=== PATIENT | male | born 1955 | race Caucasian/White ===

== ENCOUNTER 2019-09-04 11:02 | Emergency (ER) | payer MEDICARE, SELFPAY ==
[2019-09-04 11:24] VITALS: BMI 20.9
[2019-09-04 11:27] VITALS: BP 150/78; PULSE 78; RESP 18; TEMP 36.9; O2SAT 96
--- NOTE | 2019-09-04 11:29 | ED_ITS ---
Entered by Day Fajardo, acting as scribe for Pop Drake DO HPI - Eye Problem General: Chief complaint: Eye Problems Stated complaint: LEFT EYE PAIN Time Seen by Provider: 09/04/19 11:28 Source: patient Mode of arrival: ambulatory Limitations: no limitations History of Present Illness: HPI Narrative: 63 yo male presents with redness and pain to L eye. pt states this started 1-2 days ago. pt states he was grinding metal and he thinks a piece might be in his eye because the next day he woke up with redness and discharge. pt denies any other symptoms at this time. Patient had been grinding some metal and this started. chief complaint: eye pain (L eye), eye redness and vision change Onset (ago): day(s) (1-2 days ago) Onset description: sudden Duration: constant and progressively worsening Location: left eye Eye Symptoms: redness and pain Place: home Mechanism: none Severity: moderate Associated symptoms: Reports no associated symptoms; Denies fever(s), nausea or vomiting Treatments Prior to Arrival: none Review of Systems General: Reports: 10 or more systems reviewed and unremarkable except in HPI and below Const: Denies: fever, chills, body aches, change in appetite, fatigue or malaise Eyes: Reports: eye discomfort, eye discharge, eye redness and other ENMT: Denies: throat pain, ear pain, nasal discharge or nasal congestion Card: Denies: chest pain, edema, shortness of breath on exertion or shortness of breath when lying down Resp: Denies: shortness of breath, productive cough or non-productive cough GI: Denies: abdominal pain, nausea, vomiting, vomiting blood, coffee grounds in vomit, diarrhea, constipation, bloating, blood in stool or black tarry stool : Denies: flank pain, painful urination, urinary frequency or urinary urgency Skin/Breast: Denies: rash or itching PFSH ED PFSH: Social History Smoking and tobacco status: current every day smoker Physical Exam Const: COMMON NORMALS: no apparent distress GENERAL APPEARANCE: cooperative and comfortable ORIENTATION/CONSCIOUSNESS: Yes awake, Yes oriented to person, Yes oriented to place and Yes oriented to time HENMT: COMMON NORMALS: normocephalic, head/scalp atraumatic, hearing grossly normal bilaterally, external ears normal, EAC's normal, TM's normal bilaterally, nasal mucous membranes and turbinates normal, moist oral mucous membranes and oropharynx normal HEAD & SCALP: normocephalic and atraumatic NOSE: nasal mucous membranes and turbinates normal EXTERNAL EAR: Yes external ears normal EXTERNAL AUDITORY CANAL: EAC's normal TYMPANIC MEMBRANE: TM's normal bilaterally Neck/C-Spine: COMMON NORMALS: full ROM, no lymphadenopathy, supple and no JVD Lymph: LYMPHATIC: no lymphadenopathy noted and no lymphedema noted Resp: COMMON NORMALS: normal respiratory effort, no retractions, no use of accessory muscles and clear to auscultation bilaterally AUSCULTATION: clear to auscultation bilaterally Cardio: COMMON NORMALS: no JVD, regular rate, regular rhythm and no murmurs RATE: regular rate RHYTHM: regular rhythm GI: COMMON NORMALS: soft to palpation and no hepatosplenomegaly AUSCULTATION: Yes normoactive bowel sounds PALPATION: Yes soft, No tender, No guarding and Yes no hepatosplenomegaly Extremity: COMMON NORMALS: normal to inspection, normal capillary refill, no clubbing, cyanosis or edema, no calf tenderness and no pedal edema Neuro: SENSORIUM/ORIENTATION: Yes oriented to person, Yes oriented to place and Yes oriented to time Skin: COMMON NORMALS: no rashes or lesions noted GENERAL SKIN EXAM: no rashes or lesions noted Course Vital Signs: Vital signs: Vital Signs Temperature 98.5 F 09/04/19 11:27 Pulse Rate 68 09/04/19 13:35 Respiratory Rate 17 09/04/19 13:35 Blood Pressure 144/87 09/04/19 13:35 Pulse Oximetry 96 09/04/19 13:35 MDM - Eye Problem MDM Narrative: Medical decision making narrative: Initially I seen the patient evaluate him he required fluorescein eye exam with tetracaine. This was administered by nurse practitioner while I was in attendance was in critically ill patient. There was a foreign body present with a small rust ring he will be referred to ophthalmology discharge home on TobraDex to return if he has further problems patient states his tetanus is up-to-date. Discharge Plan Discharge Patient Disposition: Home, Self-Care Clinical Impression: Corneal abrasion Condition: Stable Prescriptions: New TobraDex 0.3-0.1 % drops,suspension 2 drp ophthalmic (eye) Q6H 5 Days Qty: 1 RF: 0 No Action divalproex 250 mg tablet,delayed release (DR/EC) 250 mg PO TID RF: 0 pravastatin 20 mg tablet 20 mg PO DAILY RF: 0 Discharge Orders: Discharge Order (Routine); Ordered 09/04/19 Ordered By: Pop Drake Referrals: Dallin Fraser MD [Physician] - Discharge Diet: Usual diet Discharge Activity: Resume usual activity Activity Restrictions/Additional Instructions: This management will call to get you into ophthalmology with Dr. Fraser Discharge Date/Time: 09/04/19 13:35 Coding Level of Care Code ED Flag Football Coach for Chg Fwd Exam Comprehensive The documentation recorded by the Scotty santoro Bridget Annette, accurately reflects the service I personally performed and the decisions made by Noelle whalen Curtis L, Sep 04, 2019 11:02
[2019-09-04] MEDS: fluorescein 1 mg Strip EYE-LEFT (11:49)
[2019-09-04] MEDS: tetracaine 0.5% Op Soln 4 mL Btl 1 DROP EYE-LEFT (11:50)
[2019-09-04 13:35] VITALS: BP 144/87; PULSE 68; RESP 17; O2SAT 96
--- NOTE | 2019-09-05 13:50 | DCPLANNER ---
platform material handler manager had message to schedule a follow up appointment for patient with Dr. Fraser. platform material handler manager called patient to confirm that patient wanted case planner to schedule that follow up appointment. Patient stated that he would call and schedule the follow up appointment.
== END 2019-09-04 13:35 | disposition home or self-care (01) ==
PROVIDERS: Emergency Provider Family Medicine; Family Provider Internal Medicine Cardiovascular Disease; PCP Internal Medicine Cardiovascular Disease
DX: T15.02XA Foreign body in cornea, left eye, initial encounter (principal); F17.200 Nicotine dependence, unspecified, uncomplicated; X58.XXXA Exposure to other specified factors, initial encounter
CPT/HCPCS: 12345; 99282